=== PATIENT | female | born 1960 | race Hispanic/Latino ===

== ENCOUNTER 2017-04-23 11:11 | Outpatient (CLI) | payer OTHER ==
--- NOTE | 2017-04-23 12:07 | XRay Report ---
RIGHT ANKLE RADIOGRAPHS INDICATION: Edema of right ankle. COMPARISON: None similar. FINDINGS: AP, lateral and oblique right ankle radiographs demonstrate intact mortise, malleoli and talar dome contour. Grossly unremarkable soft tissues. CONCLUSION: No acute radiographic abnormality. Thank you for the opportunity to participate in this patient's care.
== END 2017-04-23 11:12 | disposition home or self-care (01) ==
LOC: SPVIMAG 11:11
PROVIDERS: ATTEND Family Medicine Adult Medicine
DX: M25.471 Effusion, right ankle (principal)